=== PATIENT | male | born 1960 | race Caucasian/White ===

== ENCOUNTER 2020-02-15 10:46 | Emergency (ER) | payer OTHER ==
[2020-02-15 11:58] VITALS: BP 141/95; PULSE 103; TEMP 98.4; BMI 19.8
--- NOTE | 2020-02-15 12:12 | PDOC ---
History of Present Illness - General Chief Complaint: G Tube Problem Stated Complaint: G TUBE PROBLEM Time Seen by Provider: 02/15/20 12:04 - History of Present Illness Initial Comments: Pt is a 59yo M with PMH CVA w/L sided hemiparesis, dysphagia, HTN, who presents with removed G tube. [facility] Per nursing report, it was noticed that tube was removed this morning, unclear as to when it was removed during overnight shift. Per patient, tube has been in place for 3-4 months. There was an [facility] attempt [facility] at [facility]. PMH: see HPI Meds: see chart All: NKDA Review of Systems CONSTITUTIONAL:denies fever, chills HEENT:denies rhinorrhea, nasal congestion, sore throat CARDIOVASCULAR:denies chest pain RESPIRATORY:denies cough, shortness of breath GASTROINTESTINAL: denies abdominal pain, nausea, vomiting GENITOURINARY:denies dysuria NEUROLOGIC:denies headache Physical Exam General: awake, alert, in no acute distress, thin appearing Head: indentation on R skull Eyes: PERRL, EOMI ENT: hearing grossly normal, Moist mucous membranes Lung: equal breath sounds b/l, CTA b/l, no crackles, wheezes Heart: RRR, normal S1, S2, no murmurs appreciated Abdomen: soft, non tender, normoactive bowel sounds; no erythema, fluctuance around stoma. stoma appears to be closed Extremities: limited ROM, no edema, no erythema Skin: warm, dry, no rashes or lesions noted Past History - Medical History Allergies/Adverse Reactions: Allergies Allergy/AdvReac Type Severity Reaction Status Date / Time No Known Allergies Allergy Verified 02/15/20 11:58 Cardiac Disorders: Yes (atrial fib.) CVA: Yes (cva/hemiplegia/hemipareis left side.) COPD: No GI Disorders: Yes (dysphagia,) HTN: Yes - Psycho-Social/Smoking History Smoking History: Current every day smoker Information on smoking cessation initiated: No - Substance Abuse Hx (Audit-C & DAST Scrn) How often the patient has a drink containing alcohol: Never Score: In Men: 4 or > Positive; In Women: 3 or > Positive: 0 Screen Result (Pos requires Nsg. Audit-10AR): Negative In the last yr the pt used illegal drug/Rx for NonMed reason: No Score: Yes response is considered Positive: 0 Screen Result (Positive result requires Nsg. DAST-10): Negative *Physical Exam - Vital Signs Last Vital Signs Temp Pulse Resp BP Pulse Ox 98.4 F 103 H 18 141/95 97 02/15/20 11:50 02/15/20 11:50 02/15/20 11:50 02/15/20 11:50 02/15/20 11:50 Medical Decision Making - Medical Decision Making Pt is a 59yo M with PMH CVA w/L sided hemiparesis, dysphagia, HTN who presents with removed G tube. Plan: GI consult Stoma appeared to be closed will consult GI Spoke with Dr. Kearney who recommended IR recannulation Spoke with Dr. Owusu at IR who will take patient for G tube replacement 02/15/20 13:30 Pending IR 02/15/20 16:30 G tube placed by IR Disposition Discharge to [facility] 02/17/20 13:13 Discharge - Discharge Information Problems reviewed: Yes Clinical Impression/Diagnosis: Malfunction of gastrostomy tube, Dislodged gastrostomy tube Disposition: HOME - Admission No - Follow up/Referral Referrals: Homero Balderas MD [Primary Care Provider] - - Patient Discharge Instructions Patient Printed Discharge Instructions: DI for Gastrostomy: Permanent and Temporary, DI for Feeding Tube Exchange Additional Instructions: You were seen in the ER today for G-tube replacement, which was performed by interventional radiology. Please follow-up with your primary care doctor [and referral doctors] within 1-2 days to discuss your visit and make sure your symptoms have improved. Please return to the ER if you have any an additional dislodgment of the G-tube, trouble with feeds, worsening pain, development of fevers or chills, loss of consciousness, inability to tolerate food or fluids, or any other concerns. - Post Discharge Activity
--- NOTE | 2020-02-15 12:45 | PDOC ---
Documentation entered by Yulisa Yuen SCRIBE, acting as scribe for Deidra Roman MD. Deidra Roman MD: This documentation has been prepared by the scribe, Yulisa Yuen SCRIBE, under my direction and personally reviewed by me in its entirety. I confirm that the documentation accurately reflects all work, treatment, procedures, and medical decision making performed by me. Attending Attestation - Resident Resident Name: VladAmira - ED Attending Attestation I have performed the following: I have examined & evaluated the patient, The case was reviewed & discussed with the resident, I agree w/resident's findings & plan, Exceptions are as noted - HPI HPI: 02/15/20 12:10 Patient is a 59 year old male with a significant past medical history of CVA with residual hemiplegia and hemiparesis, A-fib, dysphagia requiring G-tube, and HTN who presents to the ED with G-tube dislodgement at some point overnight at his SNF. SNF staff noted that they saw his tube was out at shift change this morning. They note that it may have come out at any point between 7pm yesterday and 7am today. They state they attempted to re-place the tube without success, and thus sent him here to the ED. The patient himself denies new pain. He states his only symptom is left leg pain which has been present and unchanged for many months, nothing new today. Patient denies: any other related symptoms Allergies: NKDA - Physicial Exam PE: 02/15/20 12:34 GENERAL: nontoxic-appearing, no distress, answers questions appropriately, very very pleasant adult male, alert but only oriented to self and date, initially wearing helmet HEENT: PERRLA, EOMI, moist mucous membranes NECK/BACK: no midline ttp, no spinal step-off or deformity, no hematoma, full ROM, neck supple CARDIOVASCULAR: regular rate/rhythm, no MGR, strong peripheral pulses, capillary refill <2 seconds, extremities wwp, no edema LUNGS/RESPIRATORY: no respiratory distress, CTAB GI/ABDOMEN: G-tube site in medial LUQ appears closed with developing granulation tissue, no discharge or e/o infection, some old scars from apparent prior G- tubessymmetric [id number], normoactive BS, soft, no ttp, no midline pulsatile masses : no CVA tenderness MSK/EXTREMITIES: no muscle atrophy, no acute deformity SKIN: warm and dry, no pallor, no jaundice, no rash, no pathologic-appearing bruising, no skin breakdown, no cuts, no lesions NEUROLOGICAL: GCS 15, CN II-XII grossly intact, 5/5 strength proximally and distally, no facial droop - Medical Decision Making 02/15/20 12:38 [id number] with h/o CVA with chronic dysphagia necessitating G-tube placement, who p/w G-tube displaced at some point between 7pm yesterday and 7am today, no success replacing at [facility], now appears closed. Patient himself states no new symptoms. Initial Vital Signs Temp Pulse Resp BP Pulse Ox 98.4 F 103 H 18 141/95 97 02/15/20 11:50 02/15/20 11:50 02/15/20 11:50 02/15/20 11:50 02/15/20 11:50 Dr. Lazo is able to see the patient in IR suite and re-place G-tube. RADS/G-TUBE PLACEMENT FLUOROSCOPIC-GUIDED GASTROSTOMY TUBE PLACEMENT INDICATION: 59-year-old male dependent on G-tube for feeding now presenting for G-tube replacement that was recently displaced PROCEDURE: The risks, benefits and alternatives to the procedure were discussed with the patient's next of kin. Informed consent was obtained after answering the patient's next of kin questions. The patient's identity and procedure confirmed. Sterile technique including hand hygiene, cap, mask, sterile gown, and sterile gloves are used. The patient was placed in the supine position. The epigastric region surrounding the track of the old G-tube tract was prepped and draped in a sterile fashion with 2% chlorhexidine and a large sterile sheet. 1% lidocaine was used for local anesthetic. Multiple attempts at canalizing the old G-tube tract using KMP catheter under fluoroscopic guidance were not successful. Next under fluoroscopic guidance, 18-gauge needle was advanced at the site of the old track into the stomach bubble following by injection of a few cc of contrast demonstrating intragastric positioning. Next an 035 stiff Amplatz catheter was advanced and coiled in the stomach over which the tract was serially dilated up to 20 Serbian following which a new 16 Serbian balloon securable gastrostomy tube was advanced and the balloon was inflated with 6 cc of mixture of saline and contrast. Following that contrast injection through the G-tube was performed to document intragastric positioning. FINDINGS: Pre-existing gastrostomy tube tract completely closed. Successful fluoroscopic guided insertion of a new 16 Serbian balloon securable G-tube. Contrast injection through the newly placed G-tube demonstrated adequate intragastric positioning by flow of contrast between the gastric rugae and into the duodenum. MEDICATION: 1% lidocaine for local anesthetic. FLUOROSCOPY: 0.4 minutes of fluoroscopy was used. RADIATION DOSE: 4 Gycm2 CONTRAST: 18 mL of Visipaque 320 administered intragastrically via the G- tube. CONCLUSION: Fluoroscopic guided placement of a new 16 Serbian balloon securable gastrostomy tube. DISPOSITION: Patient tolerated procedure well with no immediate complications. Medications reviewed and reconciled to be followed by PCP. The patient was discharged to the emergency room in stable condition with no immediate complications. Gastrostomy tube is ready for immediate use. Thank you for this referral. No complications, patient tolerates well. He can go back to SNF. Return precautions are discussed and written in DC paperwork, call placed to SNF to discuss post-procedure care as well. Dispo per resident note. Heart Score/ECG Review #1 02/15/20 12:04 A-fib with RVR, rate 116, normal axis, low voltages, poor R wave progression, no ischemic ST-T changes Discharge - Discharge Information Problems reviewed: Yes Clinical Impression/Diagnosis: Malfunction of gastrostomy tube, Dislodged gastrostomy tube Condition: Improved Disposition: [facility] - Admission No - Follow up/Referral Referrals: Homero Balderas MD [Primary Care Provider] - - Patient Discharge Instructions Patient Printed Discharge Instructions: DI for Gastrostomy: Permanent and Temporary, DI for Feeding Tube Exchange Additional Instructions: You were seen in the ER today for G-tube replacement, which was performed by interventional radiology. Please follow-up with your primary care doctor [and referral doctors] within 1-2 days to discuss your visit and make sure your symptoms have improved. Please return to the ER if you have any an additional dislodgment of the G-tube, trouble with feeds, worsening pain, development of fevers or chills, loss of consciousness, inability to tolerate food or fluids, or any other concerns. - Post Discharge Activity
--- NOTE | 2020-02-15 15:58 | EKG ---
Test Reason : Blood Pressure : / mmHG Vent. Rate : 116 BPM Atrial Rate : 133 BPM P-R Int : 000 ms QRS Dur : 082 ms QT Int : 318 ms P-R-T Axes : 000 -24 047 degrees QTc Int : 442 ms ATRIAL FIBRILLATION WITH RAPID VENTRICULAR RESPONSE ANTERIOR INFARCT , AGE UNDETERMINED ABNORMAL ECG NO PREVIOUS ECGS AVAILABLE Confirmed by JACKY ARDON MD ([id number]) on 02/15/2020 3:57:58 PM Referred By: Confirmed By:JACKY ARDON MD
== END 2020-02-15 19:17 ==
LOC: JER 10:46
DX: K94.23 Gastrostomy malfunction (principal)
CPT/HCPCS: 49440; 93005; 93010; 99284-25

== ENCOUNTER 2020-05-28 11:59 | Observation (INO) | payer OTHER ==
[2020-05-28] MEDS ORDERED: ACETAMINOPHEN 1000 MG/100 ML VIAL (NON FORMULARY) IVPB ONE (12:59)
[2020-05-28] MEDS ORDERED: levETIRAcetam 500 MG/5 ML INJECTION VIAL IVPB ONE ×2 (13:06→14:04)
[2020-05-28 14:04] LABS: BASO % 1.5 % (0-2.0); EOS % 0.1 % (0-4.5); HEMATOCRIT 40.4 % (35.4-49); HEMOGLOBIN 13.4 GM/dL (11.7-16.9); LYMPH % 7.8 % (8-40); MCH 30.3 pg (25.7-33.7); MCHC 33.2 g/dl (32.0-35.9); MEAN CELL VOLUME 91.1 fl (80-96); MEAN PLT VOLUME 10.7 fl (7.5-11.1); MONO % 3.6 % (3.8-10.2); PLATELET COUNT 246 K/MM3 (134-434); RBC 4.43 M/mm3 (4.00-5.60); RDW 13.7 % (11.9-15.9); WHITE BLOOD COUNT 13.4 K/mm3 (4.0-10.0)
[2020-05-28] MEDS ORDERED: ACETAMINOPHEN INJECTION 100 ML IVPB ONE (14:04)
[2020-05-28 14:23] LABS: CHLORIDE 105 mmol/L (98-107); POTASSIUM 4.5 mmol/L (3.5-5.1); SODIUM 138 mmol/L (136-145)
[2020-05-28 14:25] LABS: CALCIUM 10.1 mg/dL (8.5-10.1)
[2020-05-28 14:26] LABS: ALBUMIN 3.7 g/dl (3.4-5.0); ANION GAP 9 MMOL/L (8-16); BLOOD UREA NITROGEN 20.2 mg/dL (7-18); CO2 24 mmol/L (21-32); GLUCOSE,RANDOM 118 mg/dL (74-106); MAGNESIUM 2.4 mg/dL (1.8-2.4)
[2020-05-28 14:29] LABS: CREATININE 1.2 mg/dL (0.55-1.3); PHOSPHOROUS 4.2 mg/dL (2.5-4.9); SGOT/AST 21 U/L (15-37); SGPT/ALT 37 U/L (13-61)
[2020-05-28 14:30] LABS: BILIRUBIN,TOTAL 0.4 mg/dL (0.2-1)
[2020-05-28 14:32] LABS: ALK PHOS 91 U/L (45-117)
[2020-05-28 14:37] LABS: EPI CELLS >36 /uL (0-25.1); HYALINE CASTS 4 /uL (0-3.1); URINE APPEARANCE CLOUDY; URINE BACTERIA 133 /uL (0-1359); URINE BILIRUBIN NEGATIVE (NEGATIVE); URINE COLOR DK YELLOW; URINE GLUCOSE (UA) NEGATIVE (NEGATIVE); URINE KETONE 1+ (NEGATIVE); URINE LEUK ESTERASE NEGATIVE (NEGATIVE); URINE NITRITE NEGATIVE (NEGATIVE); URINE PROTEIN 2+ (NEGATIVE); URINE WBC 28 /uL (0-25.8)
[2020-05-28 15:09] LABS: URINE RBC 19.7 /uL (0-23.9)
[2020-05-28 15:50] LABS: ANISOCYTOSIS 0; MACROCYTOSIS 0; PLATELET ESTIMATE NORMAL
[2020-05-28] MEDS ORDERED: APIXABAN 5 MG TABLET ONE (23:44)
[2020-05-28] MEDS ORDERED: BACLOFEN 10 MG TABLET (FP) ONE (23:45)
[2020-05-29] MEDS: APIXABAN 5 MG TABLET GT SCH ×3 (00:30→22:24)
[2020-05-29] MEDS: levETIRAcetam 500 MG/5 ML ORAL SOLUTION (UNIT-DOSE CUPS) GT SCH ×3 (00:30→22:24)
[2020-05-29] MEDS: BACLOFEN 10 MG TABLET (FP) GT SCH ×3 (00:30→22:24)
[2020-05-29 08:57] LABS: HEMATOCRIT 38.5 % (35.4-49); MCH 30.6 pg (25.7-33.7); MCHC 33.6 g/dl (32.0-35.9); MEAN CELL VOLUME 91.1 fl (80-96); PLATELET COUNT 226 K/MM3 (134-434); RBC 4.23 M/mm3 (4.00-5.60); WHITE BLOOD COUNT 9.2 K/mm3 (4.0-10.0)
[2020-05-29 09:27] LABS: POTASSIUM 3.7 mmol/L (3.5-5.1)
[2020-05-29 09:29] LABS: CALCIUM 9.3 mg/dL (8.5-10.1)
[2020-05-29 09:30] LABS: BLOOD UREA NITROGEN 16.3 mg/dL (7-18)
[2020-05-29 09:33] LABS: CREATININE 1.1 mg/dL (0.55-1.3)
[2020-05-29] MEDS: DIGOXIN 0.125 MG TABLET (FP) GT SCH (11:48)
[2020-05-29] MEDS: LISINOPRIL 20 MG TABLET GT SCH (11:49)
[2020-05-29] MEDS: METOPROLOL TARTRATE 50 MG TABLET (FP) GT SCH ×2 (14:50→22:24)
[2020-05-30] MEDS: METOPROLOL TARTRATE 50 MG TABLET (FP) GT SCH ×4 (05:52→22:00)
[2020-05-30] MEDS: APIXABAN 5 MG TABLET GT SCH ×2 (10:05→22:00)
[2020-05-30] MEDS: BACLOFEN 10 MG TABLET (FP) GT SCH ×2 (10:05→22:00)
[2020-05-30] MEDS: LISINOPRIL 20 MG TABLET GT SCH (10:05)
[2020-05-30] MEDS: DIGOXIN 0.125 MG TABLET (FP) GT SCH (10:05)
[2020-05-30] MEDS: levETIRAcetam 500 MG/5 ML ORAL SOLUTION (UNIT-DOSE CUPS) GT SCH ×2 (10:05→22:00)
[2020-05-30 13:23] VITALS: BMI 17.9
[2020-05-31] MEDS: METOPROLOL TARTRATE 50 MG TABLET (FP) GT SCH ×2 (06:51→14:00)
[2020-05-31] MEDS: BACLOFEN 10 MG TABLET (FP) GT SCH (09:33)
[2020-05-31] MEDS: APIXABAN 5 MG TABLET GT SCH (09:33)
[2020-05-31] MEDS: levETIRAcetam 500 MG/5 ML ORAL SOLUTION (UNIT-DOSE CUPS) GT SCH (09:33)
[2020-05-31] MEDS: DIGOXIN 0.125 MG TABLET (FP) GT SCH (09:33)
[2020-05-31 14:18] VITALS: BP 107/68; PULSE 98; TEMP 98
== END 2020-05-31 14:24 ==
LOC: JER 11:59 → JERBED 17:09 → UNDOADMOB 17:22 → INTOOBSV 17:22 → J5S 05-29 02:17 → JERBED 05-29 02:17
PROVIDERS: ADMIT Internal Medicine; ATTEND Family Medicine
PROC: 3E033NZ Introduction of Analgesics, Hypnotics, Sedatives into Peripheral Vein, Percutaneous Approach (ICD-10-PCS; principal; 2020-05-28)
PROC: 3E033GC Introduction of Other Therapeutic Substance into Peripheral Vein, Percutaneous Approach (ICD-10-PCS; 2020-05-28)
DX: R56.9 Unspecified convulsions (principal); R11.10 Vomiting, unspecified; G81.90 Hemiplegia, unspecified affecting unspecified side; I48.91 Unspecified atrial fibrillation; Z87.820 Personal history of traumatic brain injury; R25.1 Tremor, unspecified; Z86.73 Personal history of transient ischemic attack (TIA), and cerebral infarction without residual deficits
CPT/HCPCS: 36415; 70450-TC; 71045-TC-FY; 74177-TC; 80048; 80053; 80162; 81003; 83735; 84100; 84484; 85025; 85027; 87086; 93005; 93010; 96374; 96375; 99285-25; C9803; G0378; J0131; J0475; U0003

== ENCOUNTER 2021-01-24 12:32 | Emergency (ER) | payer OTHER ==
[2021-01-24 13:02] VITALS: TEMP 97.7; BMI 15.4
[2021-01-24 16:25] LABS: BASO % 0.9 % (0-2.0); EOS % 5.9 % (0-4.5); HEMATOCRIT 33.4 % (35.4-49); HEMOGLOBIN 11.4 GM/dL (11.7-16.9); LYMPH % 22.6 % (8-40); MCH 31.8 pg (25.7-33.7); MCHC 34.2 g/dl (32.0-35.9); MEAN CELL VOLUME 93.1 fl (80-96); MEAN PLT VOLUME 9.8 fl (7.5-11.1); MONO % 5.5 % (3.8-10.2); NEUT % 65.1 % (42.8-82.8); PLATELET COUNT 205 10^3/uL (134-434); RBC 3.59 M/mm3 (4.00-5.60); RDW 13.8 % (11.9-15.9); WHITE BLOOD COUNT 7.5 K/mm3 (4.0-10.0)
[2021-01-24 16:52] LABS: ALBUMIN 3.3 g/dl (3.4-5.0); BLOOD UREA NITROGEN 25.9 mg/dL (7-18); CALCIUM 9.1 mg/dL (8.5-10.1)
[2021-01-24 16:57] LABS: BILIRUBIN,TOTAL 0.3 mg/dL (0.2-1); TOT PROT 6.7 g/dl (6.4-8.2)
[2021-01-25 03:31] VITALS: BP 112/72; PULSE 60
== END 2021-01-25 03:31 | disposition home or self-care (01) ==
LOC: JER 12:32
DX: T85.528A Displacement of other gastrointestinal prosthetic devices, implants and grafts, initial encounter (principal)
CPT/HCPCS: 36415; 49440; 71045-TC-FY; 80053; 85025; 93005; 93010; 99285-25; C9803; U0003; U0005

== ENCOUNTER 2022-05-06 12:33 | Inpatient (IN) | payer OTHER ==
[2022-05-06 12:59] VITALS: BMI 24.3
[2022-05-06 14:45] LABS: BASO % 0.6 % (0-2.0); EOS % 4.6 % (0-4.5); HEMATOCRIT 42.8 % (35.4-49); HEMOGLOBIN 14.7 GM/dL (11.7-16.9); LYMPH % 27.4 % (8-40); MCH 30.7 pg (25.7-33.7); MCHC 34.4 g/dl (32.0-35.9); MEAN CELL VOLUME 89.2 fl (80-96); MEAN PLT VOLUME 9.5 fl (7.5-11.1); MONO % 7.2 % (3.8-10.2); NEUT % 60.2 % (42.8-82.8); PLATELET COUNT 209 10^3/uL (134-434); RBC 4.79 M/mm3 (4.00-5.60); RDW 13.4 % (11.9-15.9); WHITE BLOOD COUNT 10.2 K/mm3 (4.0-10.0)
[2022-05-06 15:05] LABS: ALBUMIN 3.6 g/dl (3.4-5.0); BLOOD UREA NITROGEN 24.3 mg/dL (7-18); CALCIUM 9.2 mg/dL (8.5-10.1)
[2022-05-06 15:08] LABS: CREATININE 1.2 mg/dL (0.55-1.3)
[2022-05-06 15:10] LABS: BILIRUBIN,TOTAL 0.5 mg/dL (0.2-1); TOT PROT 7.5 g/dl (6.4-8.2)
[2022-05-06 15:23] LABS: ACTIVATED PTT 35.1 SECONDS (25.2-36.5); INR 1.25 (0.83-1.09); PROTHROMBIN TIME (PATIENT) 14.4 SEC (9.7-13.0)
[2022-05-06] MEDS ORDERED: ONDANSETRON HCL 4 MG/5 ML BULK BOTTLE GT PRN (16:59)
[2022-05-06] MEDS ORDERED: ONDANSETRON *ODT* 4 MG TABLET GT PRN (17:29)
[2022-05-06] MEDS: APIXABAN 5 MG TABLET GT SCH (19:35)
[2022-05-06] MEDS: ACETAMINOPHEN 650 MG/20.3 ML ORAL SOLUTION (CUPS) GT SCH (19:35)
[2022-05-06 20:41] VITALS: RESP 20
[2022-05-06] MEDS ORDERED: levETIRAcetam 500 MG/5 ML ORAL SOLUTION (UNIT-DOSE CUPS) GT SCH (22:00)
[2022-05-06] MEDS: levETIRAcetam 500 MG/5 ML INJECTION VIAL IVPB SCH (22:35)
[2022-05-07] MEDS ORDERED: SODIUM CHLORIDE 1,000 ML IV SCH (00:30)
[2022-05-07] MEDS: METOPROLOL TARTRATE 50 MG TABLET (FP) GT SCH ×3 (00:59→15:13)
[2022-05-07] MEDS: ACETAMINOPHEN 650 MG/20.3 ML ORAL SOLUTION (CUPS) GT SCH ×3 (01:00→10:01)
[2022-05-07] MEDS: APIXABAN 5 MG TABLET GT SCH (06:46)
[2022-05-07] MEDS ORDERED: METOPROLOL TARTRATE 5 MG/5 ML VIAL IVPUSH PRN (08:52)
[2022-05-07] MEDS ORDERED: DIGOXIN 0.125 MG TABLET GT SCH (10:00)
[2022-05-07] MEDS: levETIRAcetam 500 MG/5 ML INJECTION VIAL IVPB SCH (10:10)
[2022-05-07 11:18] LABS: HEMATOCRIT 42.5 % (35.4-49); HEMOGLOBIN 14.4 GM/dL (11.7-16.9); MCH 30.5 pg (25.7-33.7); MCHC 33.9 g/dl (32.0-35.9); MEAN CELL VOLUME 89.9 fl (80-96); MEAN PLT VOLUME 9.9 fl (7.5-11.1); PLATELET COUNT 201 10^3/uL (134-434); RBC 4.73 M/mm3 (4.00-5.60); RDW 13.6 % (11.9-15.9); WHITE BLOOD COUNT 8.2 K/mm3 (4.0-10.0)
[2022-05-07 11:57] VITALS: BP 128/90; PULSE 95; TEMP 98.7
[2022-05-07 12:10] LABS: BLOOD UREA NITROGEN 26.2 mg/dL (7-18); CALCIUM 9.4 mg/dL (8.5-10.1)
[2022-05-07 12:11] LABS: CREATININE 1.2 mg/dL (0.55-1.3); MAGNESIUM 2.2 mg/dL (1.8-2.4); PHOSPHOROUS 3.3 mg/dL (2.5-4.9)
[2022-05-07] MEDS ORDERED: ENOXAPARIN NA (PORCINE) 60 MG/0.6 ML DISP.SYRIN SQ SCH (22:00)
== END 2022-05-07 18:10 | DRG 393 ==
LOC: JER 12:33 → JERBED 13:56 → J8W 21:39
PROVIDERS: ADMIT Family Medicine; ATTEND Family Medicine
PROC: 0D20XUZ Change Feeding Device in Upper Intestinal Tract, External Approach (ICD-10-PCS; principal; 2022-05-07)
DX: K94.23 Gastrostomy malfunction (principal); R53.2 Functional quadriplegia; I69.354 Hemiplegia and hemiparesis following cerebral infarction affecting left non-dominant side; G40.909 Epilepsy, unspecified, not intractable, without status epilepticus; R13.10 Dysphagia, unspecified; I48.91 Unspecified atrial fibrillation; I10 Essential (primary) hypertension
CPT/HCPCS: 0241U-QW; 36415; 49450; 71045-TC-FY; 80048; 80053; 83735; 84100; 85025; 85027; 85610; 85730; 86850; 86900; 86901; 93005; 93010; 99285-25